=== PATIENT | male | born 1995 | race African-American/Black ===

== ENCOUNTER 2018-09-10 14:50 | Emergency (ER) | payer BC, MEDICAID ==
[2018-09-10] MEDS ORDERED: NORMAL SALINE 1000 ML 1,000 ML IV ONE (14:53)
[2018-09-10] MEDS ORDERED: ONDANSETRON HCL INJ/PF 4 MG/2 ML SDV IV ONE (14:53)
[2018-09-10 15:46] LABS: ABSOLUTE LYMPHOCYTES (AUTO) 0.7 10^3/uL (0.5-4.7); ABSOLUTE MONOCYTES (AUTO) 0.6 10^3/uL (0.1-1.4); ABSOLUTE NEUT (AUTO) 9.2 10^3/uL (1.7-8.2); BASOPHILS % (AUTO) 0.4 % (0-2); EOSINOPHILS % (AUTO) 0.1 % (0-6); HEMATOCRIT 46.6 % (37.9-51.0); HEMOGLOBIN 15.6 g/dL (13.5-17.0); LYMPHOCYTES % (AUTO) 7.1 % (13-45); MEAN CORPUSCULAR HEMOGLOBIN 28.6 pg (27.0-33.4); MEAN CORPUSCULAR HGB CONC 33.5 g/dL (32.0-36.0); MEAN CORPUSCULAR VOLUME 85 fl (80-97); MONOCYTES % (AUTO) 5.2 % (3-13); PLATELET COUNT 390 10^3/uL (150-450); RED BLOOD COUNT 5.46 10^6/uL (4.35-5.55); RED CELL DISTRIBUTION WIDTH 14.2 % (11.5-14.0); SEGMENTED NEUTROPHILS % (AUTO) 87.2 % (42-78); TOTAL CELLS COUNTED % (AUTO) 100 %; WHITE BLOOD COUNT 10.6 10^3/uL (4.0-10.5)
[2018-09-10] MEDS ORDERED: PROCHLORPERAZINE EDISYLATE INJ 10 MG/2 ML VIAL IV ONE (16:01)
[2018-09-10] MEDS ORDERED: KETOROLAC TROMETHAMINE INJ/PF 30 MG/1 ML SDV IV ONE (16:02)
[2018-09-10] MEDS ORDERED: DIPHENHYDRAMINE HCL 50 MG/ML VIAL IV ONE (16:02)
--- NOTE | 2018-09-10 16:03 | ER Document Report ---
ED Headache - General Chief Complaint: Headache Stated Complaint: NAUSEA/VOMITING/DIARRHEA Time Seen by Provider: 09/10/18 15:44 Notes: 23-year-old male the emergency department chief complaint of headache. Patient states that he has had a headache for a month. Has suffered from migraines for a long time. When asked what was wrong patient states that he has a "cluster headache". Does not see neurology. States that headache is been coming and going for approximately 1 month. States that he has recently developed a "sinus infection". Not taking any antibiotics. States that he has been taking [id number] medications. Today the headache became severe. The light affected the headache. Wants to be in the dark. Wants to be away from noise. Patient was placed in hallway bed 16. Surrounded by 3 family members and another family member present via a cell phone conference call. Patient denies any fevers. States that he hurts all over. Large amount of nausea - HPI Patient complains to provider of: "Migraine" Timing: Worse Severity: Moderate Pain Level: 5 Associated symptoms: Double/blurred vision, Nausea/vomiting, Photophobia. denies: Chills, Lightheaded, Stiff neck Exacerbated by: Light, Noise - Related Data Allergies/Adverse Reactions: No Known Allergies Allergy (Unverified 02/05/11 13:59) Past Medical History - General Information source: Patient - Social History Smoking Status: Never Smoker Chew tobacco use (# tins/day): No Frequency of alcohol use: None Drug Abuse: None Lives with: Family Family History: Reviewed & Not Pertinent Patient has suicidal ideation: No Patient has homicidal ideation: No Pulmonary Medical History: Denies: Hx Asthma Neurological Medical History: Reports: Hx Migraine. Denies: Hx Seizures Endocrine Medical History: Denies: Hx Diabetes Mellitus Type 2 Renal/ Medical History: Denies: Hx Peritoneal Dialysis - Immunizations Immunizations up to date: Yes Hx Diphtheria, Pertussis, Tetanus Vaccination: Yes Review of Systems - Review of Systems Notes: Constitutional: denies: Chills, Diaphoresis, Fever, Malaise, Weakness EENT: denies: Eye discharge, Blurred vision, Tearing, Double vision, Nose congestion, Nose discharge, Throat swelling, Mouth pain Cardiovascular: denies: Palpitations, Heart racing, Orthopnea, Dyspnea, Chest pain Respiratory: denies: Cough, Hurts to breathe, Wheezing, Shortness of breath Gastrointestinal: denies: Abdominal pain, Diarrhea. +Nausea,+ Vomiting, Genitourinary: denies: Burning, Dysuria, Discharge, Frequency, Flank pain, Hematuria Musculoskeletal: denies: Joint pain, Joint swelling, Muscle pain, Muscle s tiffness, back pain Hematologic/Lymphatic: denies: Anemia, Easy bleeding, Easy bruising, Blood blanca ts Neurological/Psychological: denies: Confusion, Dementia, Depression, Loss of consciousness. +Headache Skin: No lesions, no masses, no skin breakdown, no abscesses Physical Exam - Vital signs Vitals: Temp 98.5 F 09/10/18 16:43 Interpretation: Normal - General General appearance: Appears well, Alert - HEENT Head: Normocephalic, Atraumatic Eyes: Normal Cornea: Normal Pupils: PERRL Fundascopic: Normal Mucous membranes: Normal Pharynx: Normal Neck: Normal, Supple. No: Brudzinski, Meningismus - Respiratory Respiratory status: No respiratory distress Chest status: Nontender Breath sounds: Normal Chest palpation: Normal - Cardiovascular Rhythm: Regular Heart sounds: Normal auscultation Murmur: No - Abdominal Inspection: Normal Distension: No distension Bowel sounds: Normal Tenderness: Nontender Organomegaly: No organomegaly - Back Back: Normal, Nontender - Extremities General upper extremity: Normal inspection, Nontender, Normal color, Normal ROM, Normal temperature General lower extremity: Normal inspection, Nontender, Normal color, Normal ROM, Normal temperature, Normal weight bearing. No: Brissa's sign - Neurological Neuro grossly intact: Yes Cognition: Normal Orientation: AAOx4 [place] Coma Scale Eye Opening: Spontaneous Deanna Coma Scale Verbal: Oriented Deanna Coma Scale Motor: Obeys Commands [place] Coma Scale Total: 15 Speech: Normal Motor strength normal: LUE, RUE, LLE, RLE Sensory: Normal - Psychological Associated symptoms: Normal affect, Normal mood - Skin Skin Temperature: Warm Skin Moisture: Dry Skin Color: Normal Course - Re-evaluation Re-evalutation: 09/10/18 18:17 Laboratory 09/10/18 09/10/18 15:27 15:27 WBC 10.6 H RBC 5.46 Hgb 15.6 Hct 46.6 MCV 85 MCH 28.6 MCHC 33.5 RDW 14.2 H Plt Count 390 Seg Neutrophils % 87.2 H Lymphocytes % 7.1 L Monocytes % 5.2 Eosinophils % 0.1 Basophils % 0.4 Absolute Neutrophils 9.2 H Absolute Lymphocytes 0.7 Absolute Monocytes 0.6 Absolute Eosinophils 0.0 Absolute Basophils 0.0 Sodium 142.3 Potassium 4.2 Chloride 105 Carbon Dioxide 26 Anion Gap 11 BUN 12 Creatinine 1.00 Est GFR ( Amer) > 60 Est GFR (Non-Af Amer) > 60 Glucose 91 Calcium 10.1 Total Bilirubin 0.9 Direct Bilirubin 0.2 Neonat Total Bilirubin Not Reportable Neonat Direct Bilirubin Not Reportable Neonat Indirect Bili Not Reportable AST 27 ALT 32 Alkaline Phosphatase 101 Total Protein 7.7 Albumin 4.6 This a well-appearing 23-year-old male in no acute distress. Long-standing history of migraines. States that he has had a headache for a month. Has had some nasal congestion. Denies fevers. Patient was given standard migraine treatment. Patient had almost complete resolution of his headache with Benadryl and Compazine. At this time I have instructed the patient that if his symptoms return he should return to the emergency department for repeat evaluation. Of note there were 3 family members in the room in the 16 hallway with me when I had all of the discussions. There was another family member that was trying to put a phone to my face and I politely asked them twice to stop putting the phone in my face. The family members that were present were requesting that I do a head CT. I have explained to them that at this time with a history of migraines and complete resolution of his headache that a head CT is not indicated. Patient has no nuchal rigidity. He has no fever. He has resolution of his symptoms. I have given them strict warning signs to return if symptoms get worse, fever, neck stiffness, other neurological symptoms. At this time will DC in stable condition. - Vital Signs Vital signs: Temp Pulse Resp BP Pulse Ox 98.5 F 09/10/18 16:43 - Laboratory Result Diagrams: 09/10/18 15:27 09/10/18 15:27 Laboratory results interpreted by me: 09/10/18 15:27 WBC 10.6 H RDW 14.2 H Seg Neutrophils % 87.2 H Lymphocytes % 7.1 L Absolute Neutrophils 9.2 H Discharge - Discharge Clinical Impression: Headache Qualifiers: Headache type: unspecified Headache chronicity pattern: unspecified pattern Intractability: not intractable Qualified Code(s): R51 - Headache Sinusitis nasal Qualifiers: Sinusitis location: unspecified location Chronicity: unspecified Qualified Code(s): J32.9 - Chronic sinusitis, unspecified Condition: Good Disposition: HOME, SELF-CARE Instructions: Antinausea Medication ([facility]), Intravenous Compazine for Headaches ([facility]), Use of Diphenhydramine, Headache ([facility]), Sinusitis ([facility]), Toradol Injection ([facility]) Additional Instructions: In the event that you develop fever, neck stiffness, worsening headache, any neurological symptoms please return for repeat evaluation. It easy over the next several days. Drink plenty of fluids. Get plenty of rest. Prescriptions: Amox Tr/Potassium Clavulanate [Augmentin 875-125 Tablet] 1 tab PO BID 10 Days #20 tablet Ibuprofen [Motrin 800 mg Tablet] 800 mg PO Q8H PRN 10 Days #30 tab PRN Reason: For Pain Scale 3-4 Forms: Return to Work
[2018-09-10 16:06] LABS: ALANINE AMINOTRANSFERASE 32 U/L (21-72); ALBUMIN 4.6 g/dL (3.5-5.0); ALKALINE PHOSPHATASE 101 U/L (38-126); ANION GAP 11 (5-19); ASPARTATE AMINO TRANSFERASE 27 U/L (17-59); BILIRUBIN,DIRECT 0.2 mg/dL (0.0-0.4); BILIRUBIN,TOTAL 0.9 mg/dL (0.2-1.3); BLOOD UREA NITROGEN 12 mg/dL (7-20); CALCIUM 10.1 mg/dL (8.4-10.2); CARBON DIOXIDE 26 mmol/L (22-30); CHLORIDE 105 mmol/L (98-107); GLUCOSE 91 mg/dL (75-110); POTASSIUM 4.2 mmol/L (3.6-5.0); SODIUM 142.3 mmol/L (137-145); TOTAL PROTEIN 7.7 g/dL (6.3-8.2)
== END 2018-09-10 18:59 | disposition home or self-care (01) ==
LOC: ER 14:50
DX: R51 Headache (principal); J32.9 Chronic sinusitis, unspecified; R11.10 Vomiting, unspecified; R19.7 Diarrhea, unspecified
CPT/HCPCS: 99284; 96374; 96375; 36415; 85025; 80053; J1200; J1885; J0780; J7030

== ENCOUNTER 2018-10-18 09:45 | Emergency (ER) | payer BC ==
[2018-10-18 09:53] VITALS: BP 165/74
[2018-10-18] MEDS ORDERED: LIDOCAINE 1% INJ-PF (10 MG/ML) 30 ML SDV INJ ONE (10:07)
--- NOTE | 2018-10-18 10:07 | ER Document Report ---
ED General - General Chief Complaint: Abscess Stated Complaint: INGROWN HAIR Time Seen by Provider: 10/18/18 09:58 Primary Care Provider: Wound Care [Provider Group] - Follow up in 3-5 days Notes: Patient is a 23-year-old male that presents to the emergency department for chief complaint of left groin abscess. Patient states that he noticed this about 2 days ago and got larger over the period of time, has become somewhat painful describes it as a 3 out of 10 aching type pain. Is noticed some redness associated with it and it is tender to touch. He has not tried to open it at home. He thinks it may be an ingrown hair, he said 1 of these before in his left axilla, denies any fevers, chills, night sweats, chest pain, shortness of breath, nausea, vomiting or any other systemic symptoms. He also denies any dysuria, hematuria or penile discharge. He reports being up to date with tetanus vaccination. Past Medical History: Denies chronic medical problems Past Surgical History: Denies major surgical history Social History: Denies tobacco, alcohol or drug use. Family History: Reviewed and noncontributory for presenting illness Allergies: Reviewed, see documented allergy list. REVIEW OF SYSTEMS: Other than noted above, the 12 point review of systems was reviewed with the patient and were negative, all pertinent findings are included in the HPI. PHYSICAL EXAMINATION: Vital signs reviewed, nursing noted reviewed. GENERAL: Well-appearing, well-nourished and in no acute distress. HEAD: Atraumatic, normocephalic. EYES: Eyes appear normal, extraocular movements intact, sclera anicteric, conjun ctiva are normal. ENT: nares patent, oropharynx clear without exudates. Moist mucous membranes. NECK: Normal range of motion, supple without lymphadenopathy LUNGS: Breath sounds clear to auscultation bilaterally and equal. No wheezes rales or rhonchi. HEART: Regular rate and rhythm without murmurs ABDOMEN: Soft, nontender, normoactive bowel sounds. No rebound, guarding, or rigidity. No masses appreciated. EXTREMITIES: Nontender, good range of motion, no pitting or edema. NEUROLOGICAL: No focal neurological deficits. Moves all extremities spontaneously Motor and sensory grossly intact on exam. PSYCH: Normal mood, normal affect. SKIN: Warm, Dry, normal turgor, in the left groin, there is a fluctuant skin lesion, consistent with abscess, measuring approximately 2 cm x 2 cm, with minimal induration surrounding, tenderness to palpation to this area, examined under ultrasound, appeared to be a fluid containing abscess. There is also palpable left inguinal lymphadenopathy. No lymphangitis noted. TRAVEL OUTSIDE OF THE [place] IN LAST 30 DAYS: No - Related Data Allergies/Adverse Reactions: No Known Allergies Allergy (Verified 10/18/18 09:52) Past Medical History - Social History Smoking Status: Never Smoker Family History: Reviewed & Not Pertinent Pulmonary Medical History: Denies: Hx Asthma Neurological Medical History: Reports: Hx Migraine. Denies: Hx Seizures Endocrine Medical History: Denies: Hx Diabetes Mellitus Type 2 Renal/ Medical History: Denies: Hx Peritoneal Dialysis - Immunizations Immunizations up to date: Yes Hx Diphtheria, Pertussis, Tetanus Vaccination: Yes Physical Exam - Vital signs Vitals: Temp Pulse Resp BP Pulse Ox 98.1 F 63 14 165/74 H 99 10/18/18 09:51 10/18/18 09:51 10/18/18 09:51 10/18/18 09:51 10/18/18 09:51 Course - Re-evaluation Re-evalutation: Patient seen and examined vital signs reviewed. Patient was evaluated and treated as appropriate for the patient's presenting symptoms and complaint, with consideration of any critical or life threatening conditions that may be associated with their obtained history and exam as noted above. Patient was treated with incision and drainage of abscess, patient tolerated well, as noted and procedure section. The patient was re-evaluated and was stable and improved Evaluation was most consistent with left groin abscess, will discharge the patient home on antibiotics and have him follow-up. Plan of care was discussed with the patient at this point, after careful consideration I feel that that patient can be discharged from the emergency department, the patient was educated treatments and reasons to return to the emergency department based on their presumed diagnosis as noted above, they were advised to followup with a primary care physician in 2-3 days. Patient was agreeable to plan of care. *Note is created using voice recognition software and may contain spelling, syntax or grammatical errors. - Vital Signs Vital signs: Temp Pulse Resp BP Pulse Ox 98.1 F 63 14 165/74 H 99 10/18/18 09:51 10/18/18 09:51 10/18/18 09:51 10/18/18 09:51 10/18/18 09:51 Procedures - Incision and Drainage Left Groin Type: Complex, Single Anesthetic type: 1% Lidocaine mL's of anesthetic: 1 Blade size: 11 I&D procedure: Betadine prep applied, Other - Irrigated with saline, loculations broken up with forceps. Incision Method: Incision made by scalpel Amount/type of drainage: 5 Notes: Patient tolerated the procedure well without complication. Discharge - Discharge Clinical Impression: Abscess of groin, left Condition: Stable Disposition: HOME, SELF-CARE Instructions: Abscess ([facility]), Post Incision and Drainage Additional Instructions: Please complete the entire course of antibiotics as prescribed, if you develop worsening symptoms, or the abscess returns, becomes more swollen, do not hesitate to return to the emergency department to be reevaluated. Prescriptions: RX: Cephalexin Monohydrate [Keflex 500 mg Capsule] 500 mg PO TID 7 Days #21 capsule Sulfamethoxazole/Trimethoprim [Bactrim Ds Tablet] 1 each PO BID #14 tablet Referrals: Wound Care [Provider Group] - Follow up in 3-5 days
== END 2018-10-18 10:40 | disposition home or self-care (01) ==
LOC: ER 09:45
PROC: 0H99XZZ Drainage of Perineum Skin, External Approach (ICD-10-PCS; principal; 2018-10-18)
DX: L02.214 Cutaneous abscess of groin (principal); E11.9 Type 2 diabetes mellitus without complications
CPT/HCPCS: 99283

== ENCOUNTER 2018-11-24 08:42 | Emergency (ER) | payer BC ==
[2018-11-24 08:47] VITALS: BP 135/71
[2018-11-24] MEDS ORDERED: LIDOCAINE 1% INJ-PF (10 MG/ML) 30 ML SDV INJ ONE (09:26)
--- NOTE | 2018-11-24 09:35 | ER Document Report ---
HPI - HPI Time Seen by Provider: 11/24/18 09:17 Pain Level: Denies Notes: Patient is a 23-year-old male who presents with concern of possible abscess to his left inguinal area is been present for the past couple days. Patient states that a little over a month ago he was here for an abscess in the same spot and had to have it cut open. Patient states that he did get better with the medicine that he was on previously. He has noticed some purulent discharge from this area today. He is otherwise able to eat and drink without difficulty. He is urinating normally and having normal bowel movements. No history of MRSA or IV drug abuse. Denies any headache, fever, URI, sore throat, chest pain, palpitations, syncope, cough, shortness of breath, wheeze, dyspnea, abdominal pain, nausea/vomiting/diarrhea, urinary retention, dysuria, hematuria, loss of control of bowel or bladder, numbness/tingling, saddle anesthesia, muscle paralysis/weakness, or rash. - ROS Systems Reviewed and Negative: Yes All other systems reviewed and negative Past Medical History - Social History Smoking Status: Never Smoker Family History: Reviewed & Not Pertinent Pulmonary Medical History: Denies: Hx Asthma Neurological Medical History: Reports: Hx Migraine. Denies: Hx Seizures Endocrine Medical History: Denies: Hx Diabetes Mellitus Type 2 Renal/ Medical History: Denies: Hx Peritoneal Dialysis - Immunizations Immunizations up to date: Yes Hx Diphtheria, Pertussis, Tetanus Vaccination: Yes Vertical Provider Document - CONSTITUTIONAL Agree With Documented VS: Yes Notes: PHYSICAL EXAMINATION: GENERAL: Well-appearing, well-nourished and in no acute distress. NECK: Normal range of motion, supple without lymphadenopathy LUNGS: Breath sounds clear to auscultation bilaterally and equal. No wheezes rales or rhonchi. HEART: Regular rate and rhythm without murmurs, rubs, gallops. ABDOMEN: Soft, nontender, nondistended abdomen. No guarding, no rebound. Normal bowel sounds present. No CVA tenderness bilaterally. Musculoskeletal: FROM to passive/active. Strength 5+/5. Extremities: No cyanosis, clubbing, or edema b/l. Peripheral pulses 2+. Capillary refill less than 3 seconds. NEUROLOGICAL: Normal speech, normal gait. Normal sensory, motor exams PSYCH: Normal mood, normal affect. SKIN: Lt inguinal: there is a smaller 1-1.5cm fluctuant indurated area noted with scant purulent discharge noted. No streaks. No necrosis of the scrotum/ area. mild erythema associated. + tenderness. - INFECTION CONTROL TRAVEL OUTSIDE OF THE [place] IN LAST 30 DAYS: No Course - Re-evaluation Re-evalutation: 11/24/18 Patient is an afebrile, well-hydrated, 23-year-old male who presents to the emergency department with an abscess to left inguinal area needing incision and drainage. Vitals are acceptable without significant tachycardia, tachypnea, or hypoxia. PE is otherwise unremarkable. Patient is nontoxic-appearing and is tolerating p.o. without difficulty. Incision and drainage was performed without any complications and packing was placed. Pt tolerated proc well. Wound dressing was placed and wound instructions reviewed. Wound culture was obtained. No further labs or imaging warranted. Low suspicion for any sepsis, meningitis, SJS, or other systemic emergent condition at this time. Patient to monitor symptoms for any acute changes and seek medical attention if so. Recheck with your PCM in 2-3 days. Consider consult with the general surgeon. Return to the ED with any worsening/concerning symptoms as reviewed. Patient is in agreement. - Vital Signs Vital signs: Temp Pulse Resp BP Pulse Ox 97.6 F 59 L 16 135/71 H 98 11/24/18 08:46 11/24/18 08:46 11/24/18 08:46 11/24/18 08:46 11/24/18 08:46 Procedures - Incision and Drainage Left Groin Type: Simple Anesthetic type: 1% Lidocaine mL's of anesthetic: 5 I&D procedure: Iodoform packing placed, Sterile dressing applied, Other - Chlorhexidine/saline Incision Method: Incision made by scalpel Amount/type of drainage: approx 2-4cc purulence/blood Discharge - Discharge Clinical Impression: Abscess of left groin Condition: Stable Disposition: HOME, SELF-CARE Instructions: Post Incision and Drainage, Cephalexin ([facility]), Trimethoprim-Sulfa ([facility]) Additional Instructions: Do not shower or bathe for 24 hours. After 24 hours you may shower but no posadas bmersion of the wound under water. Keep the original dressing on the wound for 24 hours unless the drainage soaks through. Change the dressing daily thereafter and use a small amount of triple antibiotic ointment over the open wound. See your PCM in 2-3 days for recheck and continue direction for wound packing. Monitor for any signs of worsening pain or redness, streaks, and/or fever. Return to the ED if noticing any of the above symptoms or as needed. Take medications as directed. Prescriptions: Cephalexin Monohydrate [Keflex 500 mg Capsule] 500 mg PO TID #30 capsule Sulfamethoxazole/Trimethoprim [Bactrim Ds Tablet] 1 each PO BID #20 tablet Forms: Elevated Blood Pressure Referrals: PAMELA PIERCE MD [ACTIVE STAFF] - Follow up as needed
== END 2018-11-24 09:50 | disposition home or self-care (01) ==
LOC: ER 08:42
DX: L02.214 Cutaneous abscess of groin (principal); E11.9 Type 2 diabetes mellitus without complications
CPT/HCPCS: 87070; 87205; 10060; A6266; J3490; 99282